=== PATIENT | female | born 1970 | race Caucasian/White ===

== ENCOUNTER → 2016-12-30 | Outpatient (CLI) | payer OTHER ==
--- NOTE | 2016-12-31 14:27 | MM ---
Reason for exam: screening (asymptomatic). Last mammogram was performed 1 year and 4 months ago. History: Patient had first child at age 30. Benign excisional biopsy of the left breast, July 2007. Physical Findings: A clinical breast exam by your physician is recommended on an annual basis and results should be correlated with mammographic findings. MG Screening Mammo w CAD Bilateral CC and MLO view(s) were taken. Prior study comparison: September 12, 2015, right breast MG 3d work up w/cad RT. August 29, 2015, bilateral MG screening mammo w CAD. August 20, 2014, bilateral MG screening mammo w CAD. The breast tissue is heterogeneously dense. This may lower the sensitivity of mammography. No significant changes when compared with prior studies. ASSESSMENT: Negative, BI-RAD 1 RECOMMENDATION: Routine screening mammogram of both breasts in 1 year.
== END | disposition home or self-care (01) ==
LOC: RADMAMWWP 07:40
PROVIDERS: ATTEND Obstetrics & Gynecology
DX: Z12.31 Encounter for screening mammogram for malignant neoplasm of breast (principal)

== ENCOUNTER → 2018-07-18 | Outpatient (CLI) | payer OTHER | END | disposition home or self-care (01) | LOC: RADMAMWWP 07:01 | PROVIDERS: ATTEND Obstetrics & Gynecology | DX: Z53.9 Procedure and treatment not carried out, unspecified reason (principal) ==

== ENCOUNTER → 2018-09-01 | Outpatient (CLI) | payer OTHER ==
--- NOTE | 2018-09-01 09:51 | BD ---
EXAMINATION TYPE: Axial Bone Density DATE OF EXAM: 09/01/2018 COMPARISON: NONE CLINICAL HISTORY: Postmenopausal female. Osteoporosis screening. Height: 5 FT 4 1/4 IN Weight: 188 FRAX RISK QUESTIONS: RISK FACTORS HISTORY OF: Active: NO If Premenopausal, do you have irregular periods: ABLASION AGE 46 Lost more than 2 inches in height since high school: YES MEDICATIONS: Additional Medications: CELEXA, GENERIC Additional History: EXAM MEASUREMENTS: Bone mineral densitometry was performed using the [employer] System. Bone mineral density as measured about the Lumbar spine is: ----- L1-L4(G/cm2): 1.812 T Score Values are as follows: ----- L2: 5.1 ----- L3: 5.7 ----- L4: 5.4 ----- L1-L4: 5.3 BASELINE Bone mineral density about the R hip (g/cm2): 1.220 Bone mineral density about the L hip (g/cm2): 1.233 T Score values are as follows: -----R Neck: 1.3 -----L Neck: 1.4 -----R Total: 2.1 -----L Total: 2.0 BASELINE IMPRESSION: Normal (Values between +1 and -1 indicate normal bone mass). Consider repeating this study in 5 year s or sooner if there is some new clinical indication. NOTE: T-SCORE=SD OF THE YOUNG ADULT MEAN.
--- NOTE | 2018-09-11 12:38 | MM ---
Reason for exam: screening (asymptomatic). Last mammogram was performed 1 year and 8 months ago. History: Patient had first child at age 30. Benign excisional biopsy of the left breast, July 2007. MG Screening Mammo w CAD Bilateral CC and MLO view(s) were taken. Prior study comparison: December 30, 2016, bilateral MG screening mammo w CAD. September 12, 2015, right breast MG 3d work up w/cad RT. The breast tissue is heterogeneously dense. This may lower the sensitivity of mammography. No significant changes when compared with prior studies. ASSESSMENT: Benign, BI-RAD 2 RECOMMENDATION: Routine screening mammogram of both breasts in 1 year.
== END | disposition home or self-care (01) ==
LOC: RADMAMWWP 07:29
PROVIDERS: ATTEND Obstetrics & Gynecology
DX: Z12.31 Encounter for screening mammogram for malignant neoplasm of breast (principal); N95.1 Menopausal and female climacteric states; Z13.820 Encounter for screening for osteoporosis
CPT/HCPCS: 77067; 77080

== ENCOUNTER 2018-11-04 11:09 | Day surgery (SDC) | payer OTHER ==
[2018-11-03 10:04] VITALS: BMI 28.2
[~2018-11-04 11:09] MED LIST: LACTATED RINGERS 1,000 ML IV SCH
[2018-11-04 11:42] VITALS: RESP 16; TEMP 97.4
[2018-11-04] MEDS ORDERED: LIDOCAINE 1% 20 ML VIAL (10MG/ML) FOR IV START INTRADERMA ONE (11:48)
[2018-11-04] MEDS ORDERED: PROPOFOL 10 MG/ML 20 ML VIAL IV ONE (12:34)
--- NOTE | 2018-11-04 12:55 | P.PCN ---
Date of Procedure: 11/04/18 Procedure(s) Performed: BRIEF HISTORY: Patient is a 48-year-old pleasant white female,, scheduled for an elective colonoscopy as a part of screening for colorectal neoplasia. PROCEDURE PERFORMED: Colonoscopy. PREOPERATIVE DIAGNOSIS: Screening for colon cancer. IV sedation per Anesthesia. PROCEDURE: After informed consent was obtained, the patient, was brought into the endoscopy unit. IV sedation was administered by Anesthesia under continuous monitoring. Digital rectal examination was normal. Initially the Olympus CF-160 flexible video colonoscope was then inserted in the rectum, gradually advanced into the cecum without any difficulty. Careful examination was performed as the scope was gradually being withdrawn. Ileocecal valve and the appendiceal orifice were visualized and appeared normal. Prep was excellent. Mucosa of the cecum, ascending colon, transverse colon, descending colon, sigmoid colon, and rectum appeared normal. Retroflexion was performed in the rectum and no lesions were seen. The patient tolerated the procedure well. IMPRESSION: Normal-appearing colon from rectum to cecum with no evidence of colorectal neoplasia. RECOMMENDATIONS: Findings of this examination were discussed with the patient less her family. She was advised to have a repeat screening colonoscopy in 10 years.
[2018-11-04 13:13] VITALS: BP 141/78; PULSE 61
== END 2018-11-04 13:26 | disposition home or self-care (01) ==
LOC: ORWHC2ENDO 11:09
PROVIDERS: ATTEND Internal Medicine Gastroenterology
DX: Z12.11 Encounter for screening for malignant neoplasm of colon (principal); F32.9 Major depressive disorder, single episode, unspecified; Z79.899 Other long term (current) drug therapy
CPT/HCPCS: 81025; J2704; G0121

== ENCOUNTER → 2020-06-25 | Day surgery (SDC) | payer OTHER ==
[2020-06-24 10:19] VITALS: BMI 32.3
[~2020-06-25] MED LIST changes: -LACTATED RINGERS 1,000 ML IV SCH; +ROPIVACAINE 5MG/ML 20ML VIAL ONE
[2020-06-25 12:21] VITALS: PULSE 77; TEMP 98.7
[2020-06-25 12:57] VITALS: BP 139/87; RESP 17
--- NOTE | 2020-06-25 13:10 | FL ---
EXAMINATION TYPE: FL guided pain mgmt statistic DATE OF EXAM: 06/25/2020 CLINICAL HISTORY: Low back pain. TECHNIQUE: Fluoroscopy. COMPARISON: None. FINDINGS: Fluoroscopic guidance was provided during pain relief procedure performed by Dr. Walker . A total of 12 seconds of fluoroscopic time was utilized during the procedure and 6 spot images are acquired. 6 images acquired shows needle localization at several levels in the lumbar spine. IMPRESSION: As Above.
--- NOTE | 2020-06-25 13:16 | P.PCN ---
Date of Procedure: 06/25/20 Description of Procedure: Procedure: BILATERAL L2-3, L3 4 Diagnosis: Lumbar spondylosis without myelopathy Anesthesia: Local Imaging: Fluoroscopy was used, images where saved to the medical record The patient was seen and examined in the [facility]. Procedure risks and benefits were fully reviewed with the patient. The patient understands this is a diagnostic if local only is used, as will be the case today. The goal of the procedure is to inject medication onto the medial branch or small nerves that innervate the facet joints. In this way, we can hopefully identify which of these joints, if any, may be contributing to their pain. Informed consent for procedure was obtained. The patient was taken into the office fluoroscopy procedure room and placed prone on the table. A pillow was placed under the abdomen to reduce lumbar lordosis. Vital signs were closely monitored during the procedure. The skin over the area was prepped with Betadine X 3 and draped in usual sterile manner. Sterile technique was observed throughout procedure. Under biplanar fluoroscopic guidance, the target injection area of the L2, L3, L4 A 25 gauge 31/2 inch spinal needle was then placed at the most medial and superior aspect of the transverse process near the "eye of the John dog". Aspiration for blood was negative. 1 cc of 0.5% Ropivacaine was injected into the targeted areas separately. [place] were withdrawn intact. No complications were noted during the procedure. The patient tolerated the procedure well. The patient was placed in supine position and transferred to the recovery area for observation and remained stable until discharged home. Home discharge instructions were given to the patient by the staff. Repeat in 2 weeks.
== END ==
LOC: ORPAIN 12:03
PROVIDERS: ATTEND Hospitalist
DX: M47.816 Spondylosis without myelopathy or radiculopathy, lumbar region (principal)
CPT/HCPCS: 81025; 64493; 64494; J2795

== ENCOUNTER → 2020-07-12 | Day surgery (SDC) | payer OTHER ==
[2020-07-11 10:19] VITALS: BMI 31.9
[~2020-07-12] MED LIST changes: +LACTATED RINGERS 1,000 ML IV SCH
[2020-07-12 08:11] VITALS: TEMP 97.8
--- NOTE | 2020-07-12 08:58 | P.PCN ---
Date of Procedure: 07/12/20 Surgeon: Carine Newsome Pathology: none sent Condition: stable Disposition: PACU Description of Procedure: Procedure: BILATERAL L2-3, L3 4 Diagnosis: Lumbar spondylosis without myelopathy Anesthesia: Local only with lidocaine 1% Imaging: Fluoroscopy was used, images where saved to the medical record The patient was seen and examined in the [facility]. Procedure risks and benefits were fully reviewed with the patient. The patient understands this is a diagnostic if local only is used, as will be the case today. The goal of the procedure is to inject medication onto the medial branch or small nerves that innervate the facet joints. In this way, we can hopefully identify which of these joints, if any, may be contributing to their pain. Informed consent for procedure was obtained. The patient was taken into the office fluoroscopy procedure room and placed prone on the table. A pillow was placed under the abdomen to reduce lumbar lordosis. Vital signs were closely monitored during the procedure. The skin over the area was prepped with Betadine X 3 and draped in usual sterile manner. Sterile technique was observed throughout procedure. Under biplanar fluoroscopic guidance, the target injection area of the L2, L3, L4 A 22 gauge 31/2 inch spinal needle was then placed at the most medial and superior aspect of the transverse process near the "eye of the John dog". Aspiration for blood was negative. 1 cc of 0.5% Ropivacaine was injected into the targeted areas separately. H[place] were withdrawn intact. No complications were noted during the procedure. No steroids were used for both of her diagnostic lumbar medial branch blocks. The patient tolerated the procedure well. The patient was placed in supine position and transferred to the recovery area for observation and remained stable until discharged home. Home discharge instructions were given to the patient by the staff. Repeat in 2 weeks.
[2020-07-12 09:09] VITALS: BP 132/82; PULSE 74; RESP 17
--- NOTE | 2020-07-12 10:58 | FL ---
EXAMINATION TYPE: FL guided pain mgmt statistic DATE OF EXAM: 07/12/2020 FLUOROSCOPY Fluoroscopy time of 6 seconds was used during bilateral lumbar facet block. 3 image/s document/s the procedure.
--- NOTE | 2020-07-16 12:52 | CDI ---
Date: 07.16.2020 CDS/Horticultural Farm Manager Name: Alysha Adkins Phone: If any questions, call Mayra Soriano Valve Machine Operator at [phone] Patient Name: Aisha Childress Admit Date 07.12.20 Discharge Date: 07.12.20 ATTENTION: The [facility] Coding Staff appreciate your assistance in clarifying documentation. Please respond to the clarification below the line at the bottom and electronically sign. The [facility] Coding staff will review the response and follow-up if needed. Please note: Queries are made part of the Legal Health Record. If you have any questions, please contact the Valve Machine Operator. Dear Dr. Newsome In order to code to the greatest specificity and for the greatest reimbursement I need the following information: In you procedure note, under procedure you have bilateral L2-3, L3.4. In your description of the procedure you have documented the target injection area of L2, L3, L4 and .used for both of her diagnostic lumbar medial branch blocks. Was the block done bilaterally and on both levels or bilaterally on one level? Thank you for your kind consideration. ___The procedure was done bilaterally and on both levels.. MTDD
== END ==
LOC: ORPAIN 07:38
PROVIDERS: ATTEND Anesthesiology
DX: M47.816 Spondylosis without myelopathy or radiculopathy, lumbar region (principal); E66.9 Obesity, unspecified; Z68.32 Body mass index [BMI] 32.0-32.9, adult
CPT/HCPCS: 81025; 64493; 64494; J2795

== ENCOUNTER → 2020-07-29 | Outpatient (CLI) | payer OTHER ==
[2020-07-29 14:26] VITALS: RESP 18; TEMP 98.7
--- NOTE | 2020-07-29 14:33 | P.PAINPG ---
Subjective Progress Note Date: 07/29/20 This is a 50-year-old patient referred by Dr. Hernandez for chief complaint of low back pain. Patient has been having low back pain for the past 4 years and has been getting worse for the past 6 months. We recently performed bilateral L2-3 and L3-4 MBB. He reports that he got 50% benefit for the first day from the recent medial branch blocks. Patient is located in the low back with minimal to no radiation in the bilateral lower extremities. Patient is described as sharp and stabbing. Pain is made worse with activity and coughing. She also notes that she has trouble sleeping as well as moving around in bed. Occasionally the pain will radiate into the right anterior thigh to the knee but this is uncommon. When she first gets up to walk she notices that she has difficulty walking some weakness in her right legs. However this tends to subside after she walks for a little bit of time. Currently her pain is a 5 out of 10. Patient denies adverse drug effects from medications. Patient also denies new- onset weakness, bowel/bladder incontinence, or any other signs or symptoms of cauda equina syndrome. There are no signs of acute intoxication, and no indications of medication diversion or overuse. In addition to above, 13-point review of systems is also negative for chest pain, shortness of breath, changes in vision, changes in hearing, new onset weakness, abdominal pain, diarrhea, extreme fatigue, malaise, fever, skin changes, homicidal or suicidal ideation, or bowel or bladder incontinence. Physical exam: Vital Signs: Reviewed in EMR GENERAL: Well appearing, in no acute distress PSYCH: Mood and affect is appropriate. Awake, alert, and oriented SKIN: Skin color, texture, turgor normal, no rashes or lesions HEENT: Normocephalic, atraumatic. EOM intact CV: No pedal edema RESP: Respirations are unlabored, no audible wheezing GI: Abdomen non-distended MUSCULOSKELETAL: Bilateral upper and lower extremity strength is normal and symmetric. No atrophy or tone abnormalities are noted. Lumbar spine: Straight leg raising in the sitting position is negative for radicular pain. minimal pain to palpation over the lumbar spine and paraspinous muscles. Positive for pain with facet loading and back extension/rotation Limited ROM with flexion only to 35 degrees and extension to 5 degrees. Buttocks: No pain to palpation over the PSIS, Trang test is positive for low back pain Extremities: Peripheral joint ROM is full and pain free without obvious instability or laxity in all four extremities. No edema or skin discolorations noted. Gait: Gait is normal NEUR: Bilateral upper and lower extremity coordination and muscle stretch reflexes are physiologic and symmetric. Negative clonus. No loss of sensation is noted. Cranial nerves are grossly intact. Imaging: Lumbar MRI 03/2020 L2-L3 broad-based disc bulge compressing on the ventral thecal sac and mild to moderate bilateral facet joint arthropathy causing moderate stenosis of the spinal canal L3-L4 broad-based disc bulge with severe bilateral facet joint arthropathy and ligamentum flavum thickening causing moderate to severe stenosis of the thecal sac. There is also a 7 mm synovial cyst extending from the left facet joint that impresses upon the left lateral aspect of the thecal sac. L4-L5 broad-based disc bulge that impresses on the ventral thecal sac minimally contacting the traversing S1 nerve roots and there is moderate bilateral facet joint arthropathy without narrowing of the canal. Assessment: 1. Lumbar facet arthropathy 2. Lumbar Spinal canal stenosis Plan: 1. Explanation: Diagnoses, prognoses, and multiple treatment options including but not limited to physical therapy, interventional therapies, medication management and surgery were discussed with the patient and all questions were answered to the patient's satisfaction. 2. Investigations: None 3. Counseling: The patient was counseled for 3 minutes on BODY MASS INDEX, EXERCISE. Specifically, the patient was instructed regarding the importance of weight control, and exercise in the context of both chronic pain and overall health. 4. Procedures: Scheduled for L2-L3 and L3-L4 bilateral RFA 5. Consultations: None 6. Medications: None 7. Disposition: For procedure Past Medical History Past Medical History: No Reported History Additional Past Medical History / Comment(s): Patient has hyperthyroidism. History of Any Multi-Drug Resistant Organisms: None Reported Past Surgical History: Uterine Ablation Additional Past Surgical History / Comment(s): Patient's had a D&C in the past., biopsy on left breast Past Anesthesia/Blood Transfusion Reactions: No Reported Reaction Past Psychological History: No Psychological Hx Reported Past Alcohol Use History: Occasional Additional Past Alcohol Use History / Comment(s): quit smoking 2009 Past Drug Use History: None Reported - Past Family History Mother Family Medical History: Hypertension PQRS Measure Charge Sheet Measure #226: Tobacco Use: Screen & Cessation Intervention: Pt not a tobacco user Measure #111: Pneumonia Vaccination: Pneumococcal vaccine NOT administered or previously given Measure #47: Advance Care Plan: Advance care planning discussed & documented, pt chose/unable to give Measure #412: Opioid Treatment Agreement: No documentation of signed opioid treatment agreement Measure #408: Opioid Therapy Follow-up Evaluation: Patient had NO f/u eval minimum every 3 months during opioid therapy Measure #317: Preventitive Care & Scrn High Bld Press & F/U: Normal blood pressure, f/u not required Measure #128: Body Mass Index (BMI) Screening & Follow-up: BMI documented within normal parameters Measure #131: Pain Assessment & Follow-up: Pain positive & plan documented, Follow-up scheduled Measure #431: Unhealthy Alcohol Use Preventative Care & Scrn: Patient not identified as an unhealthy alcohol user PQRS Narrative: Smoking Status Former smoker Home Medications: Ambulatory Orders Desvenlafaxine Succinate [Pristiq] 50 mg PO DAILY 05/23/20 Ibuprofen 200 mg PO Q8H 05/23/20 PQRS Measure Charge Sheet PQRS Narrative: Smoking Status Former smoker Pain Intensity [Lower Back] 8 Hx Alcohol Use (MH) Yes Home Medications: Ambulatory Orders Desvenlafaxine Succinate [Pristiq] 50 mg PO HS 05/23/20 Ibuprofen 200 mg PO Q8H PRN 05/23/20 Naproxen 250 mg PO DIRECTED PRN 05/23/20 Multivitamins, Thera [Multivitamin (formulary)] 1 tab PO DAILY 06/24/20 Controlled Substance Measures - Controlled Substance Measures Is patient prescribed a controlled substance at discharge?: No
[2020-07-29 14:43] VITALS: BP 158/99; PULSE 83
== END | disposition home or self-care (01) ==
LOC: PNWHC3 14:03
PROVIDERS: ATTEND Anesthesiology
DX: M48.061 Spinal stenosis, lumbar region without neurogenic claudication (principal); M47.816 Spondylosis without myelopathy or radiculopathy, lumbar region; Z79.891 Long term (current) use of opiate analgesic; Z79.899 Other long term (current) drug therapy; Z87.891 Personal history of nicotine dependence
CPT/HCPCS: 99211

== ENCOUNTER 2020-08-27 07:59 | Day surgery (SDC) | payer OTHER ==
[2020-08-26 12:24] VITALS: BMI 32.5
[2020-08-27 08:15] VITALS: RESP 18; TEMP 97.3
[2020-08-27] MEDS ORDERED: LACTATED RINGERS 1,000 ML IV SCH (08:24)
[2020-08-27] MEDS ORDERED: LIDOCAINE 1% (10MG/ML) FOR IV START INTRADERMA ONE (08:30)
[2020-08-27] MEDS ORDERED: ROPIVACAINE 5MG/ML 20ML VIAL ONE (08:50)
[2020-08-27] MEDS ORDERED: MIDAZOLAM 2 MG/2 ML VIAL ONE (08:50)
[2020-08-27] MEDS ORDERED: methylPREDNISolone ACETATE 40 MG/ML 1 ML VIAL ONE (08:50)
[2020-08-27] MEDS ORDERED: fentaNYL (PF) 50 MCG/ML 2 ML AMP ONE (08:50)
--- NOTE | 2020-08-27 09:23 | P.PCN ---
Date of Procedure: 08/27/20 Procedure(s) Performed: PREOPERATIVE DIAGNOSIS: 1-Lumbar Spondylosis with Facet Arthropathy without myelopathy. POSTOPERATIVE DIAGNOSIS: 1- Lumbar Spondylosis with Facet Arthropathy without myelopathy. PROCEDURES : Bilateral Radiofrequency thermocoagulation, L2 , L3 , and L4 medial branch, with fluoroscopic guidance (fluoroscopy images available in the radiology department) ( to denervate the facet joint at L2-3 ,and L3-4 levels ) ANESTHESIA: Moderate sedation with intravenous versed 2 mg and fentaneyl 100 mcg, and local infiltration with Ropivacaine 0.5 % . EBL: Minimal PROCEDURE INDICATION: The patient with low back pain secondary to lumbar facet arthropathy who had more than 50% relief of her pain with previous diagnostic lumbar medial branch block with bupivacaine. PROCEDURE DESCRIPTION / TECHNIQUE: The patient was seen and identified in the preoperative area. Risks, benefits, complications, including but not limited to risk of infection ,bleeding , allergic reactions to the medications and no complete pain releife , and alternatives were discussed with the patient, the patient agreed to proceed with the procedure and signed the consent. IV was started. Vital signs remained stable throughout the procedure. Patient was taken to the OR and time out was completed. The patient was placed in the prone position on the procedure table. The lumber area was prepped and draped in the usual sterile fashion. . Vital signs were closely monitored during the procedure .IV sedation was used during the procedure to decrease patients anxiety. Using AP and then oblique fluoroscopy, the ``eye of the John dog corresponding to the connection between the superior and transverse articular processes of right L2, L3, and L4 were identified, marked, and localized with 1% lidocaine. Subsequently, a [id number] radiofrequency cannula with a 10-mm active tip was advanced guided by fluoroscopy to each of the``eyes of the John dogat right L2, L3, and L4. Each site then underwent sensory testing at 50 Hz and 0 to 1 volt and motor testing at 2.5 Hz and 0 to 3 volt with local stimulation, but no radicular symptoms down the legs. Thereafter each sites underwent radiofrequency thermocoagulation at 80 degrees celsius for 90 seconds after injecting 0.5 ml of PF Ropivacaine 1ml, then after the thermocoagulation done , 1 ml of the block solution containing Depo-Medrol 20 mg and 3 ml of Ropivacaine 0.5% was injected at the right L2,L3,and L4 , levels after negative aspiration of CSF and blood and with no paresthesias. Cannulas were retracted while injecting lidocaine 1% until the needle is out. The same procedure was repeated at the level of Left L2, L3, and L4 levels. At the end of the procedure, the skin was cleansed and bandages were applied. COMPLICATIONS: No acute complications. DISPOSITION / PLANS: The patient was placed in a supine position and transferred to the recovery area in a stable condition for observation and was discharged from the recovery room after meeting discharge criteria. Home discharge instructions given to the patient by the staff. The patient was reexamined prior to discharge. The patient will schedule a follow up in the clinic in 2-4 weeks.
[2020-08-27] MEDS ORDERED: IV FLUID CONTINUATION 1,000 ML IV ONE (09:26)
--- NOTE | 2020-08-27 09:30 | FL ---
Fluoroscopy INDICATION: Pain FINDINGS: Fluoroscopy time: 17 seconds. Images obtained: 6. IMPRESSIONS: 1. Documentation of fluoroscopy.
[2020-08-27 09:46] VITALS: BP 122/78; PULSE 78
== END 2020-08-27 09:58 | disposition home or self-care (01) ==
LOC: ORPAIN 07:59
PROVIDERS: ATTEND Specialist
DX: M47.816 Spondylosis without myelopathy or radiculopathy, lumbar region (principal)
CPT/HCPCS: 81025; 64635; 64636; J2250; J1030; J3010; J2795; 99152; 99153

== ENCOUNTER → 2020-09-09 | Outpatient (CLI) | payer OTHER ==
[2020-09-09 13:58] VITALS: BP 164/121; PULSE 77; RESP 18; TEMP 98.1
--- NOTE | 2020-09-09 14:51 | P.PN ---
Subjective Progress Note Date: 09/09/20 This is a follow-up visit for this 50 years old female with a chronic history of severe low back pain she is diagnosed with lumbar spondylosis with lumbar facet arthropathy, and lumbar degenerative disc disease and lumbar spinal stenosis, previously we have gone RFA of the medial branch lumbar area at L2-3 and L3 4, patient reported that she had some improvement of her low back pain but she continued to have low back pain with radiation to the lower extremity associated with numbness and tingling sensation in the anterior and medial aspect of her lower extremity bilaterally, and she feels some weakness in the lower extremity, she denies any fever or night sweats she denies any change in the bowel movement or urination. Objective - Vital Signs Vital signs: Vital Signs Temp 98.1 F 09/09/20 13:51 Pulse 77 09/09/20 13:51 Resp 18 09/09/20 13:51 BP 164/121 09/09/20 13:51 Pulse Ox 99 09/09/20 13:51 - Exam Vital Signs: Reviewed in EMR Physical Examinations : -Constitutiona : Cooperative , not in acute distress . -HEENT : nech : supple , no Lymphadenopathy , normal thyroid size . : eyes : no ptosis , no icterus, no photophobia . - neurologic : Cranial nerve II to XII intact , no focal neurological deffecit . -psychatric : alert , oriented X 3 , appropriate affect , intact judgment and insight . -Lymphatic : no Lymphadenopathy . - musculoskeltal : Lumber spine moter stegnth lower extremities ,thigh and legs 5/5 Right side , 5/5 Left side deep tendon reflexes : normal Knee Jerk , normal ankle Jerk lumber facet Loading Test =positive Right , posiutive Left Range of motion of the lumbar spine Flexion 30 degrees, extension 10 degrees strait leg raising test = positive at 45 degree Fabere test= positive Right , and positive LT . tenderness over the Sacroiliac joint on the Right , and Left sides . Imaging: Lumbar MRI 03/2020 L2-L3 broad-based disc bulge compressing on the ventral thecal sac and mild to moderate bilateral facet joint arthropathy causing moderate stenosis of the spinal canal L3-L4 broad-based disc bulge with severe bilateral facet joint arthropathy and ligamentum flavum thickening causing moderate to severe stenosis of the thecal sac. There is also a 7 mm synovial cyst extending from the left facet joint that impresses upon the left lateral aspect of the thecal sac. L4-L5 broad-based disc bulge that impresses on the ventral thecal sac minimally contacting the traversing S1 nerve roots and there is moderate bilateral facet joint arthropathy without narrowing of the canal. Assessment and Plan Plan: Assessment and plan=1-lumbar spondylosis with lumbar facet arthropathy without myelopathy. 2-lumbar degenerative disc disease. 3-lumbar spinal stenosis. Patient could benefit from lumbar epidural steroid injection under fluoroscopy guidance at L3 4 and L4 5 - PQRS measures = - Patient's medications are documented in the chart. -Tobacco use is negative and counseling.Given. -Patient's has not received pneumococcal vaccine. -Advanced care planning discussed, patient not eligible. -Opiate contract signed. -Pain positive and follow-up visit/procedure is scheduled. -Patient's blood pressure measured [ 164/121 ] , and documented in the record ,and patient will follow up with the primary care. -Patient's weight was measured and body mass index [ 34.5 ] above the normal limits and counseling was done. and patient instructed to follow-up with the primary care physician. -Patient was not identified as an unhealthy alcohol user Time with Patient: Less than 30
== END | disposition home or self-care (01) ==
LOC: PNWHC3 13:40
PROVIDERS: ATTEND Specialist
DX: M48.061 Spinal stenosis, lumbar region without neurogenic claudication (principal); M47.816 Spondylosis without myelopathy or radiculopathy, lumbar region; M51.36 Other intervertebral disc degeneration, lumbar region
CPT/HCPCS: 99211

== ENCOUNTER 2020-10-10 06:29 | Day surgery (SDC) | payer OTHER ==
[2020-10-09 09:52] VITALS: BMI 33.9
[~2020-10-10 06:29] MED LIST changes: -ROPIVACAINE 5MG/ML 20ML VIAL ONE
[2020-10-10] MEDS ORDERED: LIDOCAINE 1% (10MG/ML) FOR IV START INTRADERMA ONE (06:38)
[2020-10-10 06:56] VITALS: TEMP 97.8
[2020-10-10] MEDS ORDERED: fentaNYL (PF) 50 MCG/ML 2 ML AMP ONE (07:03)
[2020-10-10] MEDS ORDERED: IOPAMIDOL M200 10 ML VIAL ONE (07:03)
[2020-10-10] MEDS ORDERED: MIDAZOLAM 2 MG/2 ML VIAL ONE (07:03)
[2020-10-10] MEDS ORDERED: methylPREDNISolone ACETATE 80 MG/ML 1 ML VIAL ONE (07:03)
--- NOTE | 2020-10-10 07:15 | P.PCN ---
Date of Procedure: 10/10/20 Procedure(s) Performed: PREOPERATIVE DIAGNOSIS: 1- Lumbar Degenerative Disc Diseases 2-Lumbar spondylosis with Facet arthropathy without myelopathy. 3-lumbar spinal stenosis POSTOPERATIVE DIAGNOSIS: Same as preop diagnosis. PROCEDURE 1. Lumbar epidural steroid injection under fluoroscopic guidance at the L4-5 level. (Fluoroscopy imaging was available in radiology department) 2. Lumbar epidurogram. ANESTHESIA: Local with 1% lidocaine 3 ml and , moderate sedation with intravenous Versed 2 mg ,and fentanyle 50 Mcg EBL: Minimal PROCEDURE INDICATION: The patient with low back pain and radiculitis symptoms unresponsive to conservative treatment. Fluoroscopy was used to optimize visualization of the needle placement and to maximize safety. PROCEDURE DESCRIPTION / TECHNIQUE: The patient was seen and identified in the preoperative area. Risks, benefits, complications including but not limited to infections ,bleeding ,allergic reaction to the medications ,nerve damage and not complete pain releife , and alternatives were discussed with the patient. The patient agreed to proceed with the procedure and signed the consent. IV was started, and vital signs were stable. Patient was taken to the OR and time out was completed. The patient was placed in the prone position on procedure table and a pillow was placed under the abdomen to reduce lumbar lordosis. The lumbosacral area was prepped and draped in the usual sterile fashion.ere closely monitored during the procedure. Conscious sedation was used during the procedure to decrease patients anxiety. Vital signs was monitered during the entire procedure. Using anterior-posterior fluoroscopy, the L4-5 interlaminar space was identified and the skin over this site was marked and then infiltrated with 1% lidocaine subcutaneously. Subsequently, a 20-gauge Tuohy epidural needle was inserted and advanced toward the epidural space using the ``Loss of resistance technique and guided by AP and lateral fluoroscopy. The correct needle position in the epidural space was verified with the injection of 2 mL of the water soluble contrast dye Isovue 200 contrast and observing an excellent epidurogram with the epidural spread of the dye, after negative aspiration for blood and CSF and in the absence of paresthesias. Again after negative aspiration, a 6 ml mixture containing 80 mg of Depo-medrol , and 2 ml of preservative free Normal Saline, and 2 ml of preservative free lidocaine 1% solution was injected and a washout of epidurogram was seen. Needle was withdrawn intact, skin was cleansed, and bandages were applied. COMPLICATIONS: None DISPOSITION / PLANS: The patient was placed in a supine position and transferred to the recovery area in a stable condition for observation. There was no evidence of lower extremity motor or sensory deficit after the procedure. Patient was discharged from the recovery room after meeting discharge criteria. Home discharge instructions were given to the patient by the staff. The patient was reexamined prior to discharge. The patient will schedule a follow up in the clinic in 2-4 weeks.
[2020-10-10] MEDS ORDERED: IV FLUID CONTINUATION 1,000 ML IV ONE (07:17)
[2020-10-10 07:20] VITALS: RESP 18
[2020-10-10 07:32] VITALS: BP 135/89; PULSE 70
--- NOTE | 2020-10-10 11:12 | FL ---
Fluoroscopy INDICATION: Pain FINDINGS: Fluoroscopy time: 2 seconds. Images obtained: 1. IMPRESSIONS: 1. Documentation of fluoroscopy.
== END 2020-10-10 07:48 | disposition home or self-care (01) ==
LOC: ORPAIN 06:29
PROVIDERS: ATTEND Specialist
DX: M51.16 Intervertebral disc disorders with radiculopathy, lumbar region (principal); M47.26 Other spondylosis with radiculopathy, lumbar region; M48.061 Spinal stenosis, lumbar region without neurogenic claudication
CPT/HCPCS: 81025; 62323; J2250; J1040; J3010; Q9966

== ENCOUNTER → 2020-11-01 | Outpatient (CLI) | payer OTHER ==
--- NOTE | 2020-11-05 10:44 | MM ---
Reason for exam: screening (asymptomatic). Last mammogram was performed 2 years and 2 months ago. History: Patient had first child at age 30. Benign excisional biopsy of the left breast, July 2007. Physical Findings: A clinical breast exam by your physician is recommended on an annual basis and results should be correlated with mammographic findings. MG 3D Screening Mammo W/Cad Bilateral CC and MLO view(s) were taken. Prior study comparison: September 01, 2018, bilateral MG screening mammo w CAD. December 30, 2016, bilateral MG screening mammo w CAD. The breast tissue is heterogeneously dense. This may lower the sensitivity of mammography. No significant changes when compared with prior studies. ASSESSMENT: Negative, BI-RAD 1 RECOMMENDATION: Routine screening mammogram of both breasts in 1 year.
== END ==
LOC: RADMAMWWP 07:11
PROVIDERS: ATTEND Family Medicine
DX: Z12.31 Encounter for screening mammogram for malignant neoplasm of breast (principal)
CPT/HCPCS: 77063; 77067

== ENCOUNTER → 2020-12-05 | Day surgery (SDC) | payer OTHER ==
[2020-12-02 09:35] VITALS: BMI 32.3
[~2020-12-05] MED LIST changes: +IOPAMIDOL M200 10 ML VIAL ONE; +methylPREDNISolone ACETATE 40 MG/ML 1 ML VIAL ONE
[2020-12-05 08:47] VITALS: TEMP 98
--- NOTE | 2020-12-05 09:12 | P.PCN ---
Date of Procedure: 12/05/20 Procedure(s) Performed: PREOPERATIVE DIAGNOSIS: 1- Lumbar Degenerative Disc Diseases 2-Lumbar spondylosis with Facet arthropathy without myelopathy. 3-lumbar spinal stenosis POSTOPERATIVE DIAGNOSIS: Same as preop diagnosis. PROCEDURE 1. Lumbar epidural steroid injection under fluoroscopic guidance at the L4-5 level. (Fluoroscopy imaging was available in radiology department) 2. Lumbar epidurogram. ANESTHESIA: Local with 1% lidocaine 3 ml only. EBL: Minimal PROCEDURE INDICATION: The patient with low back pain and radiculitis symptoms unresponsive to conservative treatment. Fluoroscopy was used to optimize visualization of the needle placement and to maximize safety. PROCEDURE DESCRIPTION / TECHNIQUE: The patient was seen and identified in the preoperative area. Risks, benefits, complications including but not limited to infections ,bleeding ,allergic reaction to the medications ,nerve damage and not complete pain releife , and alternatives were discussed with the patient. The patient agreed to proceed with the procedure and signed the consent, and vital signs were stable. Patient was taken to the OR and time out was completed. The patient was placed in the prone position on procedure table and a pillow was placed under the abdomen to reduce lumbar lordosis. The lumbosacral area was prepped and draped in the usual sterile fashion.ere closely monitored during the procedure. Vital signs was monitered during the entire procedure. Using anterior-posterior fluoroscopy, the L4-5 interlaminar space was identified and the skin over this site was marked and then infiltrated with 1% lidocaine subcutaneously. Subsequently, a 20-gauge Tuohy epidural needle was inserted and advanced toward the epidural space using the ``Loss of resistance technique and guided by AP and lateral fluoroscopy. The correct needle position in the epidural space was verified with the injection of 2 mL of the water soluble contrast dye Isovue 200 contrast and observing an excellent epidurogram with the epidural spread of the dye, after negative aspiration for blood and CSF and in the absence of paresthesias. Again after negative aspiration, a 6 ml mixture containing 80 mg of Depo-medrol , and 2 ml of preservative free Normal Saline, and 2 ml of preservative free lidocaine 1% solution was injected and a washout of epidurogram was seen. Needle was withdrawn intact, skin was cleansed, and bandages were applied. COMPLICATIONS: None DISPOSITION / PLANS: The patient was placed in a supine position and transferred to the recovery area in a stable condition for observation. There was no evidence of lower extremity motor or sensory deficit after the procedure. Per brenner was discharged from the recovery room after meeting discharge criteria. Home discharge instructions were given to the patient by the staff. The patient was reexamined prior to discharge. The patient will schedule a follow up in the clinic in 2-4 weeks.
[2020-12-05 09:20] VITALS: BP 145/83; PULSE 70; RESP 16
--- NOTE | 2020-12-05 09:39 | FL ---
Fluoroscopy History: LUM EPIDURAL INJ LUM EPIDURAL INJ . 4 SEC FL TIME. 1 PIC ON SYN
== END ==
LOC: ORPAIN 08:22
PROVIDERS: ATTEND Specialist
DX: M47.26 Other spondylosis with radiculopathy, lumbar region (principal); M51.16 Intervertebral disc disorders with radiculopathy, lumbar region; M48.061 Spinal stenosis, lumbar region without neurogenic claudication
CPT/HCPCS: 81025; 62323; J1030; Q9966

== ENCOUNTER → 2020-12-23 | Outpatient (CLI) | payer OTHER ==
[2020-12-23 10:52] VITALS: BP 143/77; PULSE 73; RESP 16; TEMP 97.9
--- NOTE | 2020-12-23 10:57 | P.PN ---
Subjective Progress Note Date: 12/23/20 Leela is a 50-year-old female who presents today for follow-up after having 2 lumbar steroid epidural injections. She reports that her pain is almost completely gone. She has a VAS of 1 or 2 at times. She finds some stiffness her low back overall she is doing much better. She is able to take care of her daily activities, she is able to walk and participate with activities with her family. She denies any new numbness tingling or weakness. She does not use any medications regularly. Review of Systems: Denies any New chest pain, short of breath, Nausea/vomitting, abdominal pain, bowel or bladder incontinence, or any overt new neurologic symptoms in his upper or lower extremities. Objective - Vital Signs Vital signs: Vital Signs Temp 97.9 F 12/23/20 10:50 Pulse 73 12/23/20 10:50 Resp 16 12/23/20 10:50 BP 143/77 12/23/20 10:50 Pulse Ox 98 12/23/20 10:50 - Exam General: Awake and alert oriented 3 no distress Respiratory exam: No audible wheezing no accessory muscle usage Cardiovascular exam: regular rate, palpable bilateral pulses, no lower extremity edema Abdominal exam: No distention nontender to palpation Cervical spine: Normal alignment, Spurling's negative, facet loading negative, Pipe Maker strength is 5/5, joel negative Lumbar spine: Spinal alignment is normal. There is slight loss of lordosis. She is able to flex and extend the lumbar spine with no pain. Slight pain with right and left lateral sidebending. Her lower extremity strength is normal in all muscle groups. Neuro exam: Normal sensation in bilateral upper extremities, deep tendon reflexes are 2+ bilateral upper extremities. Normal sensation in bilateral lower extremities. Deep tendon reflexes are 2+ in lower extremities Psych exam: Cooperative, appropriate mood Assessment and Plan Assessment: #1 lumbar radiculopathy #2 lumbar spondylosis without myelopathy Plan: At this point we'll see Aisha back in the office as needed. We discussed daily exercises and needs to improve her overall function. We will repeat the injection only as needed. I've asked to give me a call if her pain persists for more than a week. I have spent 22 minutes on patient care today. The time was used to review the medical records including relevant urine studies and Prescription history (MAPs), review of the available imaging, evaluation and examination of the patient, coordination of care with the medical staff and if applicable referring physicians, as well as creation of the medical record.
== END ==
LOC: PNWHC3 10:40
PROVIDERS: ATTEND Hospitalist
DX: M47.26 Other spondylosis with radiculopathy, lumbar region (principal); Z87.891 Personal history of nicotine dependence
CPT/HCPCS: 99211

== ENCOUNTER → 2021-06-25 | Outpatient (CLI) | payer OTHER ==
[2021-06-25 08:50] VITALS: BP 131/88; PULSE 65; RESP 18; TEMP 98.5
--- NOTE | 2021-06-25 09:09 | P.PN ---
Subjective Progress Note Date: 06/25/21 Principal diagnosis: Lumbar radiculopathy Panel is a 51-year-old female presented to clinic today for follow-up evaluation of her chronic low back pain. Her last visit with us was on 12/23/2020. That was for follow-up for a lumbar epidural steroid injection at L4 5. She reports that she's had significant relief with that previous injection that given her many months of pain relief however the pain is becoming back. She reports that she's had greater than 80% pain relief over time. She reports reports that her pain is mostly in her low back more on the left than the right radiates down into her hip and the front of her leg to her ankle. She is also has some stiffness in the right leg. She reports that her pain is worse when sleeping positions as well as extensive walking. Pain is better with sitting and standing. She like to move forward with a repeat lumbar epidural straight injection at L4 5. He denies any bowel or bladder dysfunction, saddle anesthesia, or any other red flag symptoms. Objective - Vital Signs Vital signs: Vital Signs Temp 98.5 F 06/25/21 08:46 Pulse 65 06/25/21 08:46 Resp 18 06/25/21 08:46 BP 131/88 06/25/21 08:46 Pulse Ox - Exam Physical Examinations : -Constitutiona : Cooperative , not in acute distress . -HEENT : nech : supple , no Lymphadenopathy , normal t hyroid size . : eyes : no ptosis , no icterus, no photophobia . - neurologic : Cranial nerve II to XII intact , no focal neurological deffecit . -psychatric : alert , oriented X 3 , appropriate affect , intact judgment and insight . -Lymphatic : no Lymphadenopathy . - musculoskeltal : Lumber spine moter stegnth lower extremities ,thigh and legs 5/5 Right side , 5/5 Left side deep tendon reflexes : normal Knee Jerk , normal ankle Jerk lumber facet Loading Test =positive Right , positive Left Range of motion of the lumbar spine Flexion 30 degrees, extension 10 degrees strait leg raising test = positive at 45 degree Fabere test= negative . Negative tenderness over the Sacroiliac joint on the Right , and Left sides Gaenslen test= positive right ,and positive left . Seated flexion test= positive right ,and positive Left . Distraction test= negative bilaterally Sacroiliac compression test= negative bilaterally Assessment and Plan Assessment: Assessment and plan= chronic low back pain secondary to lumbar degenerative disc disease , lumbar spondylosis with lumbar facet arthropathy . The current treatment/medication helping the patient to do activity of daily living , Diagnoses, prognosis, treatment options, including but not limited to physical therapy, medication management, interventional therapies, and surgery, were discussed with the patient All the questions answered Plan: Patient would benefit from lumbar epidural sternoid injection at L4 5. This should be the first injection possibly needing a repeat in the future. I spent extensive time with the patient and review of her records. Medications seem to be offering good relief. There is no signs of any misuse or diversion. I have directed her to her neurologist for further evaluation, none of these issues or new and I believe she has had extensive workup regarding these issues. I do also believe that some of these issues are related to her experiences with her son and likely due to her own anxiety regarding medical problems. Unfortunately his pain medications offer her some benefit and are unlikely to offer long-term relief but in the meantime do offer some benefit so we'll continue those medications. We will prescribe these medications for 2 months time. I discussed with the patient that these medications need to be used as prescribed as misuse of medication can cause significant dysfunction and possibly . I have spent 24 minutes on patient care today. The time was used to review the medical records including relevant urine studies and Prescription history (MAPs), review of the available imaging, evaluation and examination of the patient, coordination of care with the medical staff and if applicable referring physicians, as well as creation of the medical record. Maps were checked and appropriate, opioid start talking form is on file and updated, urine drug screens of been appropriate and have been reviewed. - PQRS measures = - Patient's medications are documented in the chart. -Tobacco use is negative -Patient's has not received pneumococcal vaccine. -Advanced care planning discussed, patient not eligible. -Opiate contract not signed. -Pain positive and follow-up visit/procedure is scheduled. -Patient's blood pressure measured [131/88 ] , and documented in the record ,and patient will follow up with the primary care. -Patient's weight was measured and body mass index ,within the normal limits and counseling was done. and patient instructed to follow-up with the primary care physician. -Patient was not identified as an unhealthy alcohol user Time with Patient: Less than 30
== END ==
LOC: PNWHC3 08:14
PROVIDERS: ATTEND Student in an Organized Health Care Education/Training Program
DX: M51.36 Other intervertebral disc degeneration, lumbar region (principal); M47.816 Spondylosis without myelopathy or radiculopathy, lumbar region; G89.29 Other chronic pain; Z87.891 Personal history of nicotine dependence
CPT/HCPCS: 99211

== ENCOUNTER → 2021-07-07 | Outpatient (CLI) | payer OTHER ==
--- NOTE | 2021-07-07 09:40 | XR ---
EXAMINATION TYPE: XR chest 2V DATE OF EXAM: 07/07/2021 COMPARISON: NONE TECHNIQUE: PA and lateral views submitted. HISTORY: Chest pain FINDINGS: The lungs are clear and there is no pneumothorax, pleural effusion, or focal pneumonia. Heart size normal. Biapical pleural thickening. No overt failure. Hypertrophic and degenerative change of the sp ine. IMPRESSION: 1. No acute process.
== END | disposition home or self-care (01) ==
LOC: RADXRMAIN 09:23
PROVIDERS: ATTEND Nurse Practitioner Family
DX: R07.9 Chest pain, unspecified (principal)
CPT/HCPCS: 71046

== ENCOUNTER 2021-08-05 11:21 | Day surgery (SDC) | payer OTHER ==
[2021-07-31 18:15] VITALS: BMI 29.0
[~2021-08-05 11:21] MED LIST changes: -IOPAMIDOL M200 10 ML VIAL ONE; -methylPREDNISolone ACETATE 40 MG/ML 1 ML VIAL ONE
[2021-08-05 11:43] VITALS: TEMP 99
[2021-08-05] MEDS ORDERED: IOPAMIDOL M200 10 ML VIAL ONE (12:07)
[2021-08-05] MEDS ORDERED: methylPREDNISolone ACETATE 40 MG/ML 1 ML VIAL ONE (12:07)
--- NOTE | 2021-08-05 12:21 | P.PCN ---
Date of Procedure: 08/05/21 Procedure(s) Performed: PREOPERATIVE DIAGNOSIS: 1- Lumbar Degenerative Disc Diseases 2-Lumbar spondylosis with Facet arthropathy without myelopathy. 3-lumbar spinal stenosis POSTOPERATIVE DIAGNOSIS: Same as preop diagnosis. PROCEDURE 1. Lumbar epidural steroid injection under fluoroscopic guidance at the L4-5 level. (Fluoroscopy imaging was available in radiology department) 2. Lumbar epidurogram. ANESTHESIA: Local with 1% lidocaine 3 ml only. EBL: Minimal PROCEDURE INDICATION: The patient with low back pain and radiculitis symptoms unresponsive to conservative treatment. Fluoroscopy was used to optimize visualization of the needle placement and to maximize safety. PROCEDURE DESCRIPTION / TECHNIQUE: The patient was seen and identified in the preoperative area. Risks, benefits, complications including but not limited to infections ,bleeding ,allergic reaction to the medications ,nerve damage and not complete pain releife , and alternatives were discussed with the patient. The patient agreed to proceed with the procedure and signed the consent, and vital signs were stable. Patient was taken to the OR and time out was completed. The patient was placed in the prone position on procedure table and a pillow was placed under the abdomen to reduce lumbar lordosis. The lumbosacral area was prepped and draped in the usual sterile fashion.ere closely monitored during the procedure. Vital signs was monitered during the entire procedure. Using anterior-posterior fluoroscopy, the L4-5 interlaminar space was identified and the skin over this site was marked and then infiltrated with 1% lidocaine subcutaneously. Subsequently, a 20-gauge Tuohy epidural needle was inserted and advanced toward the epidural space using the ``Loss of resistance technique and guided by AP and lateral fluoroscopy. The correct needle position in the epidural space was verified with the injection of 2 mL of the water soluble contrast dye Isovue 200 contrast and observing an excellent epidurogram with the epidural spread of the dye, after negative aspiration for blood and CSF and in the absence of paresthesias. Again after negative aspiration, a 6 ml mixture containing 80 mg of Depo-medrol , and 2 ml of preservative free Normal Saline, and 2 ml of preservative free lidocaine 1% solution was injected and a washout of epidurogram was seen. Needle was withdrawn intact, skin was cleansed, and bandages were applied. COMPLICATIONS: None DISPOSITION / PLANS: The patient was placed in a supine position and transferred to the recovery area in a stable condition for observation. There was no evidence of lower extremity motor or sensory deficit after the procedure. Per brenner was discharged from the recovery room after meeting discharge criteria. Home discharge instructions were given to the patient by the staff. The patient was reexamined prior to discharge. The patient will schedule a follow up in the clinic in 2-4 weeks.
[2021-08-05 12:27] VITALS: RESP 16
[2021-08-05 12:39] VITALS: BP 115/81; PULSE 65
--- NOTE | 2021-08-05 13:00 | FL ---
EXAMINATION TYPE: FL guided pain mgmt statistic DATE OF EXAM: 08/05/2021 CLINICAL HISTORY: Low back pain. TECHNIQUE: Fluoroscopy. COMPARISON: None. FINDINGS: Fluoroscopic guidance was provided during pain relief procedure performed by Dr. Ritter . A total of 3 seconds of fluoroscopic time was utilized during the procedure and 0 spot images are saved to PACS at time of dictation. Image loaded in document unavailable for viewing. IMPRESSION: As Above.
== END 2021-08-05 12:43 | disposition home or self-care (01) ==
LOC: ORPAIN 11:21
PROVIDERS: ATTEND Specialist
DX: M51.36 Other intervertebral disc degeneration, lumbar region (principal); M47.816 Spondylosis without myelopathy or radiculopathy, lumbar region; M48.061 Spinal stenosis, lumbar region without neurogenic claudication
CPT/HCPCS: 62323; J1030; Q9966

== ENCOUNTER → 2021-08-08 | Outpatient (CLI) | payer OTHER ==
--- NOTE | 2021-08-08 11:46 | MM ---
Reason for exam: clinical finding. Last mammogram was performed 9 months ago. History: Patient had first child at age 30. Benign excisional biopsy of the left breast, July 2007. Physical Findings: Nurse did not find any significant physical abnormalities on exam. MG 3D Diag Mammo W/Cad LT CC, MLO, and XCCL view(s) were taken of the left breast. Prior study comparison: November 01, 2020, bilateral MG 3d screening mammo w/cad. September 01, 2018, bilateral MG screening mammo w CAD. There are scattered fibroglandular densities. There is no discrete abnormality including area of concern. No significant new findings when compared with previous films. These results were verbally communicated with the patient and result sheet given to the patient on 08/08/21. ASSESSMENT: Incomplete: need additional imaging evaluation, BI-RAD 0 RECOMMENDATION: Ultrasound of the left breast.
--- NOTE | 2021-08-08 11:48 | USB ---
Reason for exam: additional evaluation requested from abnormal screening. History: Patient had first child at age 30. Benign excisional biopsy of the left breast, July 2007. US Breast LT Left complete breast ultrasound includes all four quadrants, the retroareolar region and axilla. Finding demonstrates no cystic or solid lesion seen. Pain 6-3 o'clock, attention paid to area of pain and axilla as well as full breast exam. These results were verbally communicated with the patient and result sheet given to the patient on 08/08/21. ASSESSMENT: Negative, BI-RAD 1 RECOMMENDATION: Return to routine screening mammogram schedule for both breasts. Back on schedule for October 2021. Manage patient on a clinical basis.
== END | disposition home or self-care (01) ==
LOC: RADMAMWWP 07:01
PROVIDERS: ATTEND Family Medicine
DX: R92.8 Other abnormal and inconclusive findings on diagnostic imaging of breast (principal); N64.4 Mastodynia
CPT/HCPCS: 77061; 77065

== ENCOUNTER → 2021-08-18 | Outpatient (CLI) | payer OTHER ==
--- NOTE | 2021-08-18 14:19 | P.PN ---
Subjective Progress Note Date: 08/18/21 This is a follow-up visit for this 50 years old female with history of severe low back pain ,she is diagnosed with lumbar spondylosis with lumbar facet arthropathy, ,and lumbar degenerative disc disease ,and lumbar spinal stenosis, previously we have gone RFA of the medial branch lumbar area at L2, L3 ,and L 4, her low back pain improved, and recently we have done lumbar epidural steroid injection to help her radicular symptoms to the lower extremity, patient reported that the pain that used to radiate to the feet bilaterally improved significantly currently her main issue is the radicular symptoms to the anterior medial aspect of the left thigh, denies any motor or sensory deficit she denies any fever or night sweats, denies any change in the bowel movement or urination Physical Examinations : -Constitutiona : Cooperative , not in acute distress . -HEENT : nech : supple , no Lymphadenopathy , normal thyroid size . : eyes : no ptosis , no icterus, no photophobia . - neurologic : Cranial nerve II to XII intact , no focal neurological deffecit . -psychatric : alert , oriented X 3 , appropriate affect , intact judgment and insight . -Lymphatic : no Lymphadenopathy . - musculoskeltal : Lumber spine moter stegnth lower extremities ,thigh and legs 5/5 Right side , 5/5 Left side deep tendon reflexes : normal Knee Jerk , normal ankle Jerk lumber facet Loading Test = negative bilaterally Range of motion of the lumbar spine Flexion 30 degrees, extension 10 degrees strait leg raising test = positive at 45 degree on the left side and its negative on the right side Fabere test= positive bilaterally . Imaging: Lumbar MRI 03/2020 L2-L3 broad-based disc bulge compressing on the ventral thecal sac and mild to moderate bilateral facet joint arthropathy causing moderate stenosis of the spinal canal L3-L4 broad-based disc bulge with severe bilateral facet joint arthropathy and ligamentum flavum thickening causing moderate to severe stenosis of the thecal sac. There is also a 7 mm synovial cyst extending from the left facet joint that impresses upon the left lateral aspect of the thecal sac. L4-L5 broad-based disc bulge that impresses on the ventral thecal sac minimally contacting the traversing S1 nerve roots and there is moderate bilateral facet joint arthropathy without narrowing of the canal. Assessment and plan= 1-lumbar spondylosis with lumbar facet arthropathy without myelopathy. 2-lumbar degenerative disc disease. 3-lumbar spinal stenosis. 4-lumbar radiculopathy Patient could benefit from left side transforaminal lumbar epidural steroid injection under fluoroscopy guidance at L3 4 - PQRS measures = - Patient's medications are documented in the chart. -Tobacco use is negative and counseling.Given. -Patient's has not received pneumococcal vaccine. -Advanced care planning discussed, patient not eligible. -Opiate contract not signed. -Pain positive and follow-up visit/procedure is scheduled. -Patient's blood pressure measured [ 141/88 ] , and documented in the record ,and patient will follow up with the primary care. -Patient's weight was measured and body mass index [ 34.5 ] above the normal limits and counseling was done. and patient instructed to follow-up with the primary care physician. -Patient was not identified as an unhealthy alcohol user Time with Patient: Less than 30
[2021-08-18 14:30] VITALS: BP 141/88; PULSE 72; RESP 18; TEMP 97.9
== END ==
LOC: PNWHC3 13:43
PROVIDERS: ATTEND Specialist
DX: M47.26 Other spondylosis with radiculopathy, lumbar region (principal); M51.16 Intervertebral disc disorders with radiculopathy, lumbar region; M48.061 Spinal stenosis, lumbar region without neurogenic claudication; Z87.891 Personal history of nicotine dependence
CPT/HCPCS: 99211

== ENCOUNTER → 2022-12-03 | Outpatient (CLI) | payer OTHER ==
[2022-12-03 13:45] LABS: INR 0.9 (<1.2); Partial Thromboplastin Time 23.6 sec (22.0-30.0)
[2022-12-03 21:06] LABS: Appearance,Urine Cloudy (Clear); Bilirubin,Urine Negative (Negative); Blood,Urine Negative (Negative); Color,Urine Yellow (Yellow); Ketones,Urine Negative (Negative); Nitrite,Urine Negative (Negative); PH, Urine 7.5 (5.0-8.0); Urobilinogen,Urine 0.2 (0.2,1.0)
[2022-12-03 21:15] LABS: Bacteria,Urine 3+ /HPF (None Seen)
[2022-12-03 21:24] LABS: HCT 42.9 % (37.2-46.3); HGB 13.8 g/dL (12.0-15.0); MCH 29.6 pg (27.0-32.0); MCHC 32.2 g/dL (32.0-37.0); MCV 92.1 fL (80.0-97.0); Mean Platelet Volume 9.5 fL (9.5-12.2); NRBC Per 100 WBC 0 /100 WBCS (0.0-0.0); Platelet Count 354 X 10*3/uL (140-440); RBC 4.66 X 10*6/uL (4.10-5.20); RDW 13.2 % (11.5-14.5); WBC 6.35 X 10*3/uL (4.50-10.00)
[2022-12-03 22:14] LABS: Albumin 4.6 g/dL (3.8-4.9); Albumin/Globulin Ratio 1.84 (1.60-3.17); Anion Gap 10.3 mmol/L (10.00-18.00); BUN/Creat Ratio 15.22 Ratio (12.00-20.00); Blood Urea Nitrogen 13.7 mg/dL (9.0-27.0); Calcium 9.8 mg/dL (8.7-10.3); Carbon Dioxide 27.7 mmol/L (20.0-27.5); Globulin 2.5 g/dL (1.6-3.3); Non-African American GFR(CKD) 72.5 (60.0-200.0); Potassium 4.7 mmol/L (3.5-5.5); Total Bilirubin 0.3 mg/dL (0.30-1.20); Total Protein 7.1 g/dL (6.2-8.2)
== END | disposition home or self-care (01) ==
LOC: LABPAT 11:29
PROVIDERS: ATTEND Orthopaedic Surgery
DX: Z01.818 Encounter for other preprocedural examination (principal); M16.12 Unilateral primary osteoarthritis, left hip; R94.31 Abnormal electrocardiogram [ECG] [EKG]
CPT/HCPCS: 80053; 81001; 85027; 85610; 85730; 87070; 93005

== ENCOUNTER 2022-12-14 05:35 | Day surgery (SDC) | payer OTHER ==
[2022-12-08 11:54] VITALS: BMI 32.4
[~2022-12-14 05:35] MED LIST changes: +ACETAMINOPHEN TAB 500 MG TAB PO PRN; +GABAPENTIN 300 MG CAP PO PRN; -LACTATED RINGERS 1,000 ML IV SCH; +MELOXICAM 7.5 MG TAB PO PRN; +TRANEXAMIC ACID IN NACL,ISO-OS 1,000 MG in SALINE 1 100ML.BAG IVPB PRN
[2022-12-14] MEDS ORDERED: SCOPOLAMINE 1 MG/72 HR PATCH TRANSDERM ONE (05:51)
[2022-12-14] MEDS ORDERED: MIDAZOLAM 2 MG/2 ML VIAL IV PRN (05:51)
[2022-12-14] MEDS ORDERED: DEXAMETHASONE SOD PHOSPHATE 4 MG/ML 1 ML VIAL IV ONE (05:51)
[2022-12-14] MEDS ORDERED: LACTATED RINGERS 1,000 ML IV SCH (05:51)
[2022-12-14] MEDS ORDERED: ONDANSETRON 4 MG/2 ML VIAL IVP ONE (05:51)
[2022-12-14 06:13] VITALS: TEMP 97
[2022-12-14] MEDS ORDERED: fentaNYL (PF) 50 MCG/ML 2 ML AMP IVP ONE (06:50)
[2022-12-14] MEDS ORDERED: MIDAZOLAM 2 MG/2 ML VIAL IVP ONE (06:50)
[2022-12-14] MEDS ORDERED: PROPOFOL 10 MG/ML 20 ML VIAL IV ONE (06:55)
[2022-12-14] MEDS ORDERED: MIDAZOLAM 2 MG/2 ML VIAL ONE (06:55)
[2022-12-14] MEDS ORDERED: ROPIVACAINE 5 MG/ML 30 ML VIAL ONE (06:55)
[2022-12-14] MEDS ORDERED: LIDOCAINE 4% LTA KIT (4 ML) TOPICAL ONE (06:55)
[2022-12-14] MEDS ORDERED: HYDROmorphone (PF) 1 MG/ML ONE (06:55)
[2022-12-14] MEDS ORDERED: LIDOCAINE 2% INJ 20 MG/ML (2 ML VIAL) ONE (06:55)
[2022-12-14] MEDS ORDERED: fentaNYL (PF) 50 MCG/ML 2 ML AMP ONE (06:55)
[2022-12-14] MEDS ORDERED: SUCCINYLCHOLINE CHLORIDE 200 MG/10 ML VIAL IV ONE (06:55)
[2022-12-14] MEDS ORDERED: TRANEXAMIC ACID IN NACL,ISO-OS 1,000 MG/100 ML BAG ONE (06:55)
[2022-12-14] MEDS ORDERED: ceFAZolin 1,000 MG in SODIUM CHLORIDE 0.9% 1,000 ML IRRIGATION ONE (07:00)
[2022-12-14] MEDS ORDERED: HYDROmorphone 0.5 MG/0.5 ML SYRINGE IVP PRN ×3 (07:00→08:37)
[2022-12-14] MEDS ORDERED: ROPIVACAINE 5 MG/ML 30 ML VIAL MISCELLANE ONE (07:25)
[2022-12-14] MEDS ORDERED: LACTATED RINGERS 1,000 ML IV ONE (08:11)
--- NOTE | 2022-12-14 08:13 | P.OP ---
Date of Procedure: 12/14/22 Preoperative Diagnosis: Severe osteoarthritis left hip Postoperative Diagnosis: Severe osteoarthritis left hip Procedure(s) Performed: Left total hip arthroplasty with a direct anterior approach Implants: [employer] Polarstem standard size 1 with a collar [employer] R3, 3 hole hemispherical acetabular shell, 52 mm [employer] Reflection 6.5 mm cancellus screw, 20 mm, 25 mm [employer] R3, XLPE 20 acetabular liner [employer] Oxinium femoral head 36 m, +0 All components were press-fit. The articulation is Oxinium on polyethylene. Anesthesia: GETA Surgeon: Trey Mixon Ventilating Engineer #1: Aubree Senior Estimated Blood Loss (ml): 400 Pathology: other (Femoral head) Condition: stable Disposition: PACU Indications for Procedure: After failure of conservative treatment we discussed the surgical and nonsurgical treatment options at length. Patient wishes to proceed with a total hip arthroplasty with a direct anterior approach. Complications specific to this procedure were discussed at length, including but not limited to infection, leg length discrepancy, dislocation, nerve injury, and fracture. Covid-19 was also discussed at length with the patient, and they are aware of the current p olicies and procedures. The patient was given the option of delaying surgery, but they elect to proceed knowing these risks. Patient is aware of all these complications and informed consent was obtained Operative Findings: The operative findings are consistent with severe osteoarthritis of the left hip Description of Procedure: The patient was seen and evaluated in the preoperative area and the consent was reviewed. The operative site was marked with a skin marker. The patient verified the procedure and operative site. A KAREL block was placed by anesthesia in the preoperative area. The patient was then brought to the operating room and given preoperative antibiotics intravenously. 1 g of Tranexamic acid was also given intravenously. A general anesthetic was administered by the anesthesia department. The patient was then placed on the Richardson table with the bony prominences well-padded. The hip area was then prepped with a ChloraPrep solution and draped in the usual sterile fashion. A universal timeout was then performed, which confirmed the patient's name, surgical site, ALLERGIES, and procedure being performed on the consent. Next the incision site was located at 1 cm distal and 4 cm lateral to the anterior superior iliac spine. The skin and subcutaneous tissues were sharply incised. Incision was carefully dissected down to the fascia overlying the tensor fascia janny muscle. This fascia was then incised in line with the muscle fibers. Care was taken to stay laterally in order to avoid injuring the lateral femoral cutaneous nerve. Next, using blunt finger dissection, the tensor fascia janny muscle was dissected off its investing fascia. The muscle was then carefully retracted laterally with a cobra retractor over the lateral neck of the femur. Next, the circumflex vessels were identified and cauterized using the Aquamantis device. The anterior hip capsule was then exposed. The capsule was then opened and an inverted T fashion. The retractors were then placed intracapsularly. The retractors were maintained intracapsular throughout the procedure. The proximal femur was then visualized. Fluoroscopic x-rays were then taken in order to evaluate the preoperative leg lengths. A small amount of traction was placed on the leg. The femoral neck was then osteotomized at the appropriate level above the lesser trochanter. A small wedge of bone was then removed from the remaining femoral head. Next, using a corkscrew the femoral head was removed from the acetabulum. On gross visual inspection, the femoral head had complete loss of articular cartilage and multiple periarticular osteophytes. The femoral head was then measured. Attention was then turned to the acetabulum. The acetabulum was exposed and any remaining labrum was excised. Sequential reaming of the acetabulum was performed using fluoroscopic guidance until there was a good bed of bleeding cancellus bone. When the appropriate size was reached, a trial was then placed. The position and fit of the trial was checked with fluoroscopy. The trial was then removed. Then, using fluoroscopic guidance, the final implant was impacted at 20 of anteversion and 40 of abduction, and fully seated in the acetabulum. 2 screws were then placed in the acetabulum. Again fluoroscopy was used to check position of the screws. Next, the liner was then impacted, with a 20 elevated liner located in the anterior superior quadrant. Component locking was confirmed. Attention was then directed to the femur. With the aid of the Richardson table, the femur was externally rotated to approximately 130, extended, and adducted under the opposite leg. A side hook was then placed under the proximal femur, and the side hook elevator was used to elevate the proximal femur while releasing the capsule. Retractors were then placed. A capsular release was performed, as well as a release of the conjoined tendon, which afforded excellent visualization of the proximal femur. Next, a box osteotome was used to lateralize the proximal femur. A violin maker hand was then used to locate the femoral canal. Sequential broaching was then performed with appropriate size which afforded excellent fixation in the proximal femur. A trial was then placed with appropriate head and neck, and the hip was gently reduced with the aid of the Richardson table. Fluoroscopy was then used to check position of the components, as well as to evaluate the leg lengths and offset. The leg lengths and offset were measured as closely as possible to ensure stability of the hip. The hip was then gently dislocated and the trials were then removed. Final implants were then impacted and the hip was again reduced. Final fluoroscopic x-rays confirmed that the components were in anatomic position. The leg lengths and offset were measured and were found to coincide with the trial measurements. The hip was also taken through range of motion, and found to be stable. The hip was then copiously irrigated with antibiotic solution with pulsatile lavage. The hip was then irrigated with Irrisept solution. The soft tissues were then injected with a ropivacaine solution. A second dose of 1 g of Tranexamic acid was also given intravenously. The fascia was then closed with 2-0 strata fix suture. The subcutaneous tissue was closed with 3-0 Vicryl. The subcuticular tissue was closed with 3-0 strata fix suture. The skin was then closed with Exofin skin glue. After the glue and dried, and Optifoam silver impregnated dressing was applied. The patient was then transferred to the recovery room in stable condition. The clinical nursing assistant TING Cedeño was required due to the complexity of surgery, and the need for skilled director medical surgical for positioning, draping, exposure, retraction, and closure of the wound.
[2022-12-14] MEDS ORDERED: NALOXONE 0.4 MG/ML 1 ML VIAL IV PRN (08:37)
[2022-12-14] MEDS ORDERED: HYDROmorphone 1 MG/ML 1 ML SYRINGE IVP PRN (08:37)
[2022-12-14] MEDS ORDERED: ONDANSETRON 4 MG/2 ML VIAL IVP PRN (08:37)
[2022-12-14] MEDS ORDERED: MAGNESIUM HYDROXIDE 2,400 MG/10 ML CUP PO PRN (08:37)
[2022-12-14] MEDS ORDERED: HYDROcodone/APAP 7.5-325MG 1 EACH TAB PO PRN ×2 (08:39)
[2022-12-14] MEDS ORDERED: SODIUM CHLORIDE 0.9% 1,000 ML IV SCH (08:45)
--- NOTE | 2022-12-14 08:47 | XR ---
Fluoroscopy History: TOTAL LT ANTERIOR HIP 35sec fluoro time 2.5082 DAP
[2022-12-14 08:49] VITALS: RESP 16
--- NOTE | 2022-12-14 09:05 | XR ---
EXAMINATION TYPE: XR Hip Limited LT DATE OF EXAM: 12/14/2022 8:54 AM INDICATION: Patient age:Female; 52 years old; Reason for study: Status post hip surgery, assess surgical alignment; PHH. COMPARISON: Same day fluoroscopy. TECHNIQUE: The left hip was examined in the frontal projection FINDINGS: Post arthroplasty changes, hardware is intact, alignment is appropriate. No evidence of fra cture. Postoperative changes of the soft tissues with subcutaneous gas. No evidence of any acute osse ous pathology or joint dislocation. IMPRESSION: Hip arthroplasty with hardware intact and in appropriate alignment. No acute fracture.
--- NOTE | 2022-12-14 09:43 | P.ANPRN ---
Procedure Note - Anesthesia - Nerve Block Performed Left Galdino Single Time Out Performed: Yes ([id number]) Date of Procedure: 12/14/22 Procedure Start Time: 06:50 Procedure Stop Time: 06:56 Location of Patient: PreOp Indication: Acute Post-Operative Pain, Requested by Surgeon Specifically requested for management of pain by DrSharmin: Trey Mixon Sedation Type: Sedate with meaningful contact maintained Preparation: Sterile Prep Position: Supine Catheter: None Needle Types: Pajunk Needle Gauge: 21 Ultrasound used to visualize needle placement: Yes Ultrasound used to observe medication spread: Yes Injectate: 0.5% Ropivacaine (see comment for volume) (30cc) Blood Aspirated: No Pain Paresthesia on Injection Noted: No Resistance on Injection: Normal Image Stored and Saved: Yes Events: Uneventful and Well Tolerated
[2022-12-14] MEDS ORDERED: HYDROcodone/APAP 7.5-325MG 1 EACH TAB PO ONE (11:07)
[2022-12-14 11:59] VITALS: BP 113/77; PULSE 75
[2022-12-14] MEDS ORDERED: SENNOSIDES-DOCUSATE SODIUM 1 EACH TAB PO SCH (21:00)
== END 2022-12-14 12:45 | disposition home health service (06) ==
LOC: OR 05:35
PROVIDERS: ATTEND Orthopaedic Surgery
DX: M16.12 Unilateral primary osteoarthritis, left hip (principal); G89.18 Other acute postprocedural pain; I10 Essential (primary) hypertension; F10.90 Alcohol use, unspecified, uncomplicated; E07.9 Disorder of thyroid, unspecified; F41.8 Other specified anxiety disorders; K21.9 Gastro-esophageal reflux disease without esophagitis; H53.8 Other visual disturbances; Z82.49 Family history of ischemic heart disease and other diseases of the circulatory system; Z98.42 Cataract extraction status, left eye; Z79.890 Hormone replacement therapy; Z79.899 Other long term (current) drug therapy; Z87.891 Personal history of nicotine dependence; Z98.41 Cataract extraction status, right eye; Z98.890 Other specified postprocedural states
CPT/HCPCS: 97110; 97161; 64447; 76942; 86900; 86901; 86850; 73501; 27130; C1776; J2250; J1100; J0690 ×2; J2405; J3010; J2795; 88300

== ENCOUNTER → 2023-04-09 | Outpatient (CLI) | payer OTHER ==
--- NOTE | 2023-04-26 11:59 | MM ---
EXAM: MG 3D screening mammo w/cad DATE OF EXAM: 04/09/2023 4:55 PM COMPARISON STUDIES: 09/01/2018 Bilateral Screening Mammogram, [facility]. 11/01/2020 Bilateral Screening Mammogram, [facility]. 08/08/2021 Left Diagnostic Mammogram, [facility]. PATIENT HISTORY: Female, 53 years old with history of Z12.31 SCREENING MAMMO; , Menarche at age 12. First Full-Term at age 30. Late child-bearing (after 30). Postmenopausal. Patient has history of breast feeding. 07/2007, Benign Excisional Biopsy on the left side. , RISK CALCULATION: Yas 5 year model risk: 1.8%. NCI Lifetime model risk: 12.0%. TISSUE DENSITY: Scattered fibroglandular densities FINDINGS: There is no suspicious group of microcalcifications or new suspicious mass in either breast. ASSESSMENT: 1 - Negative RECOMMENDATION: 1. Screening Mammogram Bilateral in 1 Year . COMMENTS: [facility] will attempt to contact patient to return for supplemental views and ultrasound if indicated. Patient should continue monthly self-breast exams. A clinical breast exam by your physician is recommended on an annual basis. This exam should not preclude additional follow-up of suspicious palpable abnormalities. Note on Yas scores and lifetime risk: 1. A Yas score greater than 3% is considered moderate risk. If this is the case, consider specialist referral to assess eligibility for a risk reducing agent. 2. If overall lifetime risk for the development of breast cancer is 20% or higher, the patient may qualify for future screening with alternating mammogram and breast MRI. ASTER
== END | disposition home or self-care (01) ==
LOC: RADMAMWWP 15:55
PROVIDERS: ATTEND Family Medicine
DX: Z12.31 Encounter for screening mammogram for malignant neoplasm of breast (principal); Z78.0 Asymptomatic menopausal state
CPT/HCPCS: 77063; 77067

== ENCOUNTER → 2023-06-16 | Outpatient (CLI) | payer OTHER | LOC: CPPFTMAIN 08:33 | PROVIDERS: ATTEND Family Medicine | DX: R06.09 Other forms of dyspnea (principal); Z87.891 Personal history of nicotine dependence | CPT/HCPCS: 94060; 94726; 94729 ==

== ENCOUNTER → 2024-04-11 | Outpatient (CLI) | payer OTHER ==
--- NOTE | 2024-05-03 22:11 | MM ---
Reason for Exam: Screening (asymptomatic). Last screening mammogram was performed 12 month(s) ago. Patient History: Menarche at age 12. First Full-Term at age 30. Late child-bearing (after 30). Postmenopausal. Patient has history of breast feeding. 07/2007, Benign Excisional Biopsy on the left side. Risk Values: Yas 5 year model risk: 1.8%. NCI Lifetime model risk: 11.7%. Prior Study Comparison: 11/01/2020 Bilateral Screening Mammogram, [facility]. 08/08/2021 Left Diagnostic Mammogram, [facility]. 04/09/2023 Bilateral MG 3D screening mammo w/cad, [facility]. Tissue Density: There are scattered areas of fibroglandular density. Findings: Analyzed By CAD. There is no suspicious group of microcalcifications or new suspicious mass in either breast. Overall Assessment: Negative, BI-RAD 1 Management: Screening Mammogram of both breasts in 1 year. . Patient should continue monthly self-breast exams. A clinical breast exam by your physician is recommended on an annual basis. This exam should not preclude additional follow-up of suspicious palpable abnormalities. Note on Yas scores and lifetime risk: 1. A Yas score greater than 3% is considered moderate risk. If this is the case, consider specialist referral to assess eligibility for a risk reducing agent. 2. If overall lifetime risk for the development of breast cancer is 20% or higher, the patient may qualify for future screening with alternating mammogram and breast MRI. Electronically signed and approved by: Sybil Nicholas M.D. Radiologist
== END | disposition home or self-care (01) ==
LOC: RADMAMWWP 12:00
PROVIDERS: ATTEND Obstetrics & Gynecology
DX: Z12.31 Encounter for screening mammogram for malignant neoplasm of breast
CPT/HCPCS: 77063; 77067

== ENCOUNTER 2024-08-29 12:21 | Day surgery (SDC) | payer OTHER ==
[2024-08-25 12:10] VITALS: BMI 33.3
[~2024-08-29 12:21] MED LIST changes: -ACETAMINOPHEN TAB 500 MG TAB PO PRN; -GABAPENTIN 300 MG CAP PO PRN; +LIDOCAINE 1% (10MG/ML) FOR IV START INTRADERMA PRN; -MELOXICAM 7.5 MG TAB PO PRN; -TRANEXAMIC ACID IN NACL,ISO-OS 1,000 MG in SALINE 1 100ML.BAG IVPB PRN
[2024-08-29 13:00] VITALS: RESP 16; TEMP 97.3
[2024-08-29] MEDS: IV FLUID CONTINUATION 1,000 ML IV ONE (13:02)
[2024-08-29] MEDS: LACTATED RINGERS 1,000 ML IV SCH (13:09)
[2024-08-29] MEDS ORDERED: PROPOFOL 10 MG/ML 20 ML VIAL IV ONE (14:05)
[2024-08-29] MEDS ORDERED: LIDOCAINE 2% (PF) 20 MG/ML 5 ML VIAL ONE (14:05)
--- NOTE | 2024-08-29 14:30 | P.PCN ---
Date of Procedure: 08/29/24 Procedure(s) Performed: BRIEF HISTORY: Patient is a 54-year-old pleasant white female scheduled for an elective colonoscopy as a part of evaluation of chronic diarrhea for the last few months duration. Been having 5-6 loose watery bowel movements daily but no blood or mucus in the stool. PROCEDURE PERFORMED: Colonoscopy biopsy and snare polypectomy. PREOPERATIVE DIAGNOSIS: Chronic diarrhea. IV sedation per Anesthesia. PROCEDURE: After informed consent was obtained, the patient, was brought into the endoscopy unit. IV sedation was administered by Anesthesia under continuous monitoring. Digital rectal examination was normal. Initially the Olympus CF-160 flexible video colonoscope was then inserted in the rectum, gradually advanced into the cecum without any difficulty. Careful examination was performed as the scope was gradually being withdrawn. Ileocecal valve and the appendiceal orifice were visualized and appeared normal. Prep was excellent. Mucosa of the cecum, ascending colon, transverse colon, descending colon, normal. In the sigmoid colon there was a 5 mm polyp that was removed by cold snare polypectomy. Random biopsies were done of the ascending and descending colon to rule out microscopic/collagenous colitis. Rest of the sigmoid colon, and rectum appeared normal. Retroflexion was performed in the rectum and no lesions were seen. The patient tolerated the procedure well. IMPRESSION: 5 mm sigmoid colon polyp status post cold snare polypectomy Rest of the colon appeared normal RECOMMENDATIONS: Findings of this examination were discussed with the patient as well as her family.. He was advised to follow with the biopsy results. If the biopsy reveals adenoma she can have repeat colonoscopy in 5 years. She will be seen in the office in 2 to 3 weeks.
[2024-08-29 14:50] VITALS: BP 139/87; PULSE 62
== END 2024-08-29 15:31 | disposition home or self-care (01) ==
LOC: ORWHC2ENDO 12:21
PROVIDERS: ATTEND Internal Medicine Gastroenterology
DX: K52.9 Noninfective gastroenteritis and colitis, unspecified (principal); D12.5 Benign neoplasm of sigmoid colon; E78.5 Hyperlipidemia, unspecified; E89.0 Postprocedural hypothyroidism; J44.9 Chronic obstructive pulmonary disease, unspecified; N28.9 Disorder of kidney and ureter, unspecified; F32.A Depression, unspecified; Z79.890 Hormone replacement therapy; Z79.51 Long term (current) use of inhaled steroids; Z79.84 Long term (current) use of oral hypoglycemic drugs; Z79.899 Other long term (current) drug therapy
CPT/HCPCS: 88305; 88313; 45380; 45385; J2704; J2003